=== PATIENT | male | born 2005 | race Caucasian/White ===

== ENCOUNTER 2023-05-13 11:20 | Outpatient (AMB) | payer OTHER, SELFPAY ==
--- NOTE | 2023-05-13 11:18 | A.OFFVISP_ITS ---
Intake Pediatric Intake Visit Reasons: [facility] depression Allergies No Known Allergies Allergy (Verified 05/13/23 11:19) Medication List - Last Reconciled 05/13/23 by Tess Burt MD sertraline 12.5 mg (1/2 x 25 mg) PO DAILY 6 days HPI [facility] depression Details: He increased dose to 25 mg a few months ago . this dose works really well for him. he feels that the sertraline really helps his mood a lot and doesnt cause any side effects - he does not have HAs or SAs. his appetite is wnl. he does have trouble falling asleep most nights. 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 he likes it a lot. he feels his mood is pretty good. overall he would say his mood is 5-6 with 7 at best and 3 at worst. if he has a really bad day he takes an additional 1/2 tab (TDD = 37.5 mg on those days) and that seems to help. he does this approx once every 2 weeks which is how often his mood is off. [facility] Medical History ADHD (attention deficit hyperactivity disorder), combined type Allergies Anxiety Sleep initiation disorder Surgical History No pertinent past surgical history Family History Mother No problems noted. Father No problems noted. Sister Drug use Social History Household Members Other:: lives with parents. Mom ICU nurse at [employer] Questionnaire PHQ-9: Modified for Teens Feeling down, depressed, irritable or hopeless?: Several Days Little interest or pleasure in doing things?: More than half the days Trouble falling asleep, staying asleep, or sleeping too much?: Nearly every day Poor appetite, weight loss or overeating?: Not at all Feeling tired, or having little energy?: Not at all Feeling bad about yourself-or feeling that you are a failure, or that you let yourself/your family down?: Several Days Trouble concentrating on things like school work, reading, or watching TV?: Several Days Moving/speaking so slowly that other people have noticed? Or the opposite-being so fidgety that you were moving more than usual?: Several Days Thoughts that you would be better off , or of hurting yourself in some way?: Not at all In the past year have you felt depressed or sad most days, even if you felt okay sometimes?: No How difficult have these problems made it for you to do your work, take care of things at home, or get along with other?: Somewhat difficult Has there been a time in the past month when you have had serious thoughts about ending your life?: No Have you ever, in your entire life, tried to kill yourself or made a suicide attempt?: No Score: 9 Depression Screening Interpretation: Positive Depression Screening Follow-up: Existing condition and In treatment Review of Systems Const All systems reviewed & are unremarkable except as noted in HPI and below Pediatric Exam Const Constitutional General: healthy appearing, comfortable and no acute distress Psych Mental Status: mental status grossly normal Speech and movement: Normal speech and movement present Mood: congruent mood Attitude: cooperative Thought content: Normal thought content present Assessment & Plan Assessment & Plan (1) Anxiety: Code(s): F41.9 - Anxiety disorder, unspecified Plan: continue sertraline at 25 mg qd. discussed mechanism of action and delayed effect with dose change. discussed dose change as option vs taking intermittent extra dose but [place] feels that current dose is effective for him and would prefer to stay at 25 mg daily at this point. advised f/u for any worsening mood or if he feels he needs to increase dose. otherwise will f/u in 3 mos (due for [facility]) Medications: Changed From sertraline 12.5 mg (1/2 x 25 mg) PO DAILY 6 days 3 tabs 0RF To sertraline 25 mg PO DAILY 30 days 30 tabs 2RF Refilled sertraline 25 mg PO DAILY 30 days 90 tabs 0RF Telehealth Telehealth Location of provider rendering services: practice address Location of patient: address on file Patient Identification confirmed using: Name, : Yes Telehealth method: voice only Patient verbally consented to treatment: Yes Patient verbally consented to billing insurance company: Yes Patient informed of any privacy concerns related to visit: Yes Minutes spent on Phone/Video with Pt.: 25 Coding Level of Care Code Tele Est Pt Level 4 (00197) Diagnoses Anxiety F41.9
== END 2023-05-13 12:22 | disposition home or self-care (01) ==
LOC: HO.HMGP 11:20
PROVIDERS: PCP Pediatrics; Visit Provider Pediatrics
DX: F41.9 Anxiety disorder, unspecified (principal)
CPT/HCPCS: 99443

== ENCOUNTER 2023-10-27 11:10 | Outpatient (AMB) | payer BC, SELFPAY ==
[2023-10-27 11:19] VITALS: BP 108/70; PULSE 97; TEMP 36.3; O2SAT 98; BMI 20.2
--- NOTE | 2023-10-27 11:19 | A.OFFVISP_ITS ---
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 Sx started after eating Dutch food with his girlfriend. Both developed N/V/D and stomach cramps the following day. Was seen at urgent care, treated with immodium and Zofran. Reports Zofran caused constipation. Now, he reports persistent loose stool and excess gas. No blood in stool. Taking probiotic and eating yogurt. Tried Gas-X but feels it made his constipation worse. Reports feeling tired, hot/cold, excess burping and flatulance. Stomach pain is diffuse. No dysuria. Also has new puppy in the home. [facility] Medical History ADHD (attention deficit hyperactivity disorder), combined type Allergies Anxiety Sleep initiation disorder Surgical History No pertinent past surgical history Family History Mother No problems noted. Father No problems noted. Sister Drug use Social History Household Members Other:: lives with parents. Mom ICU nurse at [employer] Review of Systems Const All systems reviewed & are unremarkable except as noted in HPI and below Pediatric Exam Const Constitutional General: cooperative, healthy appearing, comfortable, no acute distress, well developed, alert and awake Nutritional appearance: well nourished [facility] Head: normal to inspection, normocephalic and atraumatic Ears: hearing grossly normal bilaterally Nose: Normal external nose present Mouth: lip normal Eyes General: appearance normal, both eyes and all related structures Chest Chest: normal inspection of the chest Resp Effort & Inspection: normal respiratory effort and able to speak in complete sentences Auscultation: clear to auscultation bilaterally Cardio Rate: regular rate Rhythm: regular rhythm Heart sounds: S1 normal heart sound present and S2 normal heart sound present GI Inspection (pedi): Yes normal to inspection and No abdominal distension Palpation: Soft to palpation, No hepatosplenomegaly present, no guarding, no masses and nontender Auscultation: Hyperactive bowel sounds present Skin General: no rashes or lesions noted Psych Appearance: well kempt Mood: congruent mood Assessment & Plan Assessment & Plan (1) Diarrhea: Code(s): R19.7 - Diarrhea, unspecified Qualifiers: Diarrhea type: unspecified type Qualified Code(s): R19.7 - Diarrhea, unspecified Plan: Patient like had foodborne vs viral gastroenteritis. His residual sx are likely from post infection inflammation of the GI tract and should resolve with time. Reviewed conservative management of gastroenteritis. Advised to use Gas-X as needed prior to meals. Continue probiotic. Advised increased intake of fluids. Eat bland foods such as bananas, rice, apple sauce, toast, and yogurt. Avoid dairy, high fiber, fried, or spicy foods F/u for persistent or worsening symptoms or if symptoms do not resolve in 1 week. Coding Level of Care Code Est Pt Level 3 (45295) Diagnoses Diarrhea, unspecified type R19.7 Diarrhea type: unspecified type
== END 2023-10-27 11:38 | disposition home or self-care (01) ==
PROVIDERS: Visit Provider Physician Assistant
DX: R19.7 Diarrhea, unspecified (principal)
CPT/HCPCS: 99213